=== PATIENT | male | born 1985 | race Caucasian/White ===

== ENCOUNTER 2019-08-11 10:42 | Emergency (ER) | payer BC, SELFPAY ==
--- NOTE | 2019-08-11 10:51 | ED.GENADULT ---
HPI - General Adult General Chief complaint: Wound/Laceration Stated complaint: knee lac Time Seen by Provider: 08/11/19 10:51 Source: patient Mode of arrival: ambulatory Limitations: no limitations History of Present Illness HPI narrative: Patient is a 34-year-old who presents for evaluation of left knee laceration. 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 Patient sustained a laceration from that, and he tried to apply tissue adhesive without much improvement. Patient denies pain, numbness any active bleeding. He is up-to-date on her tetanus. Patient was seen at an urgent care and referred to this facility for repair. Related Data Allergies Allergy/AdvReac Type Severity Reaction Status Date / Time steriods Allergy Unknown Rash Uncoded 08/11/19 11:17 Review of Systems Review of Systems: Narrative: CONSTITUTIONAL: Denies fever, chills, or sweats. CARDIOVASCULAR: Denies chest pain GASTROINTESTINAL: Denies abdominal pain GENITOURINARY: Denies dysuria or hematuria. SKIN: Denies rash or itching. MUSCULOSKELETAL: Denies back pain NEUROLOGIC: Denies numbness PMF Surgical History Surgical History History of appendectomy Social History Social History (Updated 08/11/19 @ 11:03 by Jennifer Hebert MD) Smoking status: Never smoker Alcohol intake: current Drinks per week: 2 Substance use: never Living arrangements: with family Gender identity (if verbalized by the patient): Male Exam Narrative: Exam Narrative: GENERAL: Awake, alert, conversant HEAD: Normocephalic, atraumatic. EYES: PERRLA and EOMI. ENT: Nares clear, no rhinorrhea or epistaxis. Mucous membranes moist. NECK: Supple. CHEST: No respiratory distress, breathing even and non labored HEART: Regular rate, sinus rhythm ABDOMEN:Non distended, non tender EXTREMITIES: Normal range of motion. No edema. SKIN: Warm, dry, no rash. 2 cm superficial, linear laceration to the medial aspect of the left knee, no active bleeding, no foreign body, no deep tissue involvement NEURO:No focal deficits. Alert and oriented x3 Course Vital Signs Vital signs: Vital Signs Temperature 37.1 C 08/11/19 10:57 Pulse Rate 68 08/11/19 10:57 Respiratory Rate 16 08/11/19 10:57 Blood Pressure 118/54 L 08/11/19 10:57 Pulse Oximetry 100 08/11/19 10:57 Temperature 37.1 C 08/11/19 10:57 Pulse Rate 68 08/11/19 10:57 Respiratory Rate 16 08/11/19 10:57 Blood Pressure 118/54 L 08/11/19 10:57 Pulse Oximetry 100 08/11/19 10:57 Procedures Laceration Laceration 1: Date: 08/11/19 Time: 11:04 Site: lower extremity Side (If applicable): left Size (cm): 2 Description: linear Depth: simple, single layer Local Anesthetic: lidocaine 1% Amount of anesthesia used (mL): 4 Pre-repair: wound explored, irrigated and irrigated extensively ====== Skin Level ====== Skin layer closed with: prolene Size (cm): 5-0 Number of sutures: 4 Technique: simple, interrupted ====== Subcutaneous Layer ====== ====== Muscle Layer ====== ====== Tendon Layer ====== Medical Decision Making MDM Narrative Medical decision making narrative: Patient with superficial laceration to the medial aspect of the left knee. No foreign body. This was irrigated extensively, sutured. No deep sutures were required for this. Patient is up-to-date on his tetanus. No pain, evidence of foreign body to warrant imaging. Patient is neurovascularly intact. Patient was discharged home with wound care instructions. Vital Signs Vital Signs: Vital Signs Temperature 37.1 C 08/11/19 10:57 Pulse Rate 68 08/11/19 10:57 Respiratory Rate 16 08/11/19 10:57 Blood Pressure 118/54 L 08/11/19 10:57 Pulse Oximetry 100
[2019-08-11 10:57] VITALS: BP 118/54; PULSE 68; RESP 16; TEMP 37.1; O2SAT 100
[2019-08-11 11:36] VITALS: BP 118/63; PULSE 82; RESP 18; O2SAT 97
== END 2019-08-11 11:39 | disposition home or self-care (01) ==
LOC: ANHED 11:06
PROVIDERS: Emergency Provider Emergency Medicine; PCP Nurse Practitioner Family
DX: S81.012A Laceration without foreign body, left knee, initial encounter (principal); W30.89XA Contact with other specified agricultural machinery, initial encounter
CPT/HCPCS: 12001; 99282

== ENCOUNTER 2020-04-04 10:33 | Emergency (ER) | payer BC, SELFPAY ==
--- NOTE | ~2020-04-04 | US_ITS ---
EXAMINATION:US venous doppler LE LT INDICATION:Left calf pain TECHNIQUE: Multiple grayscale, color flow and Doppler images of the left lower extremity deep venous systems were obtained and reviewed. COMPARISON:No prior studies for comparison. FINDINGS: The common femoral, superficial femoral and popliteal veins demonstrate normal respiratory variation, augmentation and compressibility. Color flow is also seen within the posterior tibial, pe roneal, greater saphenous and profunda veins. IMPRESSION: 1: No lower extremity deep venous thrombosis. Reviewed, dictated and finalized at location B. 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
--- NOTE | ~2020-04-04 | XR_ITS ---
XR foot LT min 3V 04/04/2020 11:05 INDICATION: Left foot pain PROCEDURE: 4 views left foot COMPARISON: No prior studies for comparison. FINDINGS: Fracture, dislocation or subluxation is not identified. Lisfranc joint intact. The soft tis sues appear within normal limits. No foreign bodies are identified. IMPRESSION: 1: NO ACUTE BONE OR JOINT ABNORMALITY IDENTIFIED. Reviewed, dictated and finalized at location B. 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
[2020-04-04 10:39] VITALS: BP 146/99; PULSE 80; RESP 18; TEMP 35.9; O2SAT 100
[2020-04-04 11:43] LABS: Basophils Absolute Auto 0.1 K/mm3 (0.0-0.1); Basophils Percent Auto 0.6 % (0.2-1.2); Eosinophils Absolute Auto 0.2 K/mm3 (0-0.3); Eosinophils Percent Auto 1.9 % (0-4.4); Hematocrit 45.5 % (42.0-52.0); Hemoglobin 15.5 g/dL (14.0-18.0); Immature Granulocyte Absolute 0.03 K/mm3 (0.00-0.031); Immature Granulocyte Percent A 0.4 % (0-0.5); Lymphocytes Absolute Auto 2.37 K/mm3 (0.9-3.2); Mean Corpuscular HGB Conc 34.1 g/dl (32-36); Mean Corpuscular Hemoglobin 28.9 pg (26-34); Mean Corpuscular Volume 84.9 fl (80-100); Mean Platelet Volume 11.9 fl (7.4-10.4); Monocytes Absolute Auto 0.8 K/mm3 (0.1-0.6); Monocytes Percent Auto 9.6 % (2.6-8.5); Neutrophils Absolute Auto 5.1 K/mm3 (1.3-6.7); Neutrophils Percent Auto 59.5 % (45.5-73.1); Platelet Count Result 175 k/mm3 (150-375); Red Blood Count 5.36 M/mm3 (4.6-6.20); Red Cell Distribution Width 12.5 % (11.5-14.5); White Blood Count 8.5 K/mm3 (4.5-10.0)
[2020-04-04 11:59] LABS: Alanine Aminotransferase 40 U/L (4-50); Albumin Level 4.6 g/dL (3.5-5.1); Alkaline Phosphatase 73 U/L (38-126); Anion Gap 10 mmol/L (8-16); Aspartate Amino Transferase 33 U/L (17-59); Bilirubin,Total 0.6 mg/dL (0.2-1.3); Blood Urea Nitrogen 19 mg/dL (9-20); Calcium 9.3 mg/dL (8.4-10.2); Carbon Dioxide 29 mmol/L (22-30); Chloride 101 mmol/L (98-107); Estimated CRCL calculation 105 ml/min; Estimated Glomerular Filt Rate > 60; Glucose 101 mg/dL (75-110); Potassium 4.2 mmol/L (3.4-5.0); Sodium 140 mmol/L (137-145); Uric Acid 9.8 mg/dL (3.5-8.5)
[2020-04-04 12:35] LABS: Erythrocyte Sedimentation Rate 10 mm/hr (0-20)
--- NOTE | 2020-04-04 12:38 | ED.GENADULT ---
HPI - General Adult General Chief complaint: Extremity Injury, Lower Stated complaint: Possible DVT Time Seen by Provider: 04/04/20 10:48 Source: RN notes reviewed History of Present Illness HPI narrative: Patient presents emergency department from urgent care for left foot pain. Patient states symptoms again proximally 1 week ago is located in the left dorsal foot rating to left lateral foot. States he has some pain that then radiates up into the lower calf states he does have a history of being diagnosed with gout at the end of February after he had been seen at the urgent care with improvement of the pain at that time then this pain again started 1 week ago he denies any trauma or injury he denies any fevers or chills chest pain shortness of breath or any other symptoms Related Data Allergies Allergy/AdvReac Type Severity Reaction Status Date / Time steriods Allergy Unknown Rash Uncoded 04/04/20 10:42 Review of Systems Review of Systems: Narrative: Gen.: Denies fevers or chills Respiratory: Denies shortness of breath or cough CV: Denies chest pain or palpitations GI: Denies abdominal pain nausea, emesis Musculoskeletal: See HPI Neuro: Denies numbness, tingling, weakness or focal weakness Skin: Denies rash Except as documented, all other systems reviewed and negative [facility] Past Medical History Medical History (Updated 04/04/20 @ 12:44 by Jordi Brody DO) Patient denies significant medical history Surgical History Surgical History History of appendectomy Social History Social History Smoking status: Never smoker Alcohol intake: current Drinks per week: 2 Substance use: never Gender identity (if verbalized by the patient): Male Exam Narrative: Exam Narrative: APPEARANCE: No acute distress, nontoxic, resting in bed Eyes: EOMI HEENT: Normocephalic, atraumatic, RESPIRATORY: No respiratory distress MUSCULOSKELETAl: Tender palpation of the left dorsal foot going to the left lateral foot at the base of the fifth metatarsal no swelling but mild erythema edema tenderness that extends along the dorsal heel up to the base of the calf mild swelling there is full flexion-extension of the left ankle without pain dorsalis pedis pulse 2+ neurovascular intact NEURO: Awake and alert. Following commands, speech normal, no focal deficits SKIN:: Warm, dry. Normal Color no rash or lesions Course Course Emergency Course: Discussed with patient results of workup and diagnosis. Discussed need for follow-up with primary care, proper use of medication, and reasons to return to the emergency department. Patient understands and agrees to current treatment plan I discussed with patient treatment of his gout he states he is allergic to steroids he states he does have some chronic heel pain on the left side Vital Signs Vital signs: Vital Signs Temperature 96.7 F L 04/04/20 10:39 Pulse Rate 80 04/04/20 10:39 Respiratory Rate 18 04/04/20 10:39 Blood Pressure 146/99 H 04/04/20 10:39 Pulse Oximetry 100 04/04/20 10:39 Temperature 96.7 F L 04/04/20 10:39 Pulse Rate 80 04/04/20 10:39 Respiratory Rate 18 04/04/20 10:39 Blood Pressure 146/99 H 04/04/20 10:39 Pulse Oximetry 100 04/04/20 10:39 Medical Decision Making Vital Signs Vital Signs: Vital Signs Temperature 96.7 F L 04/04/20 10:39 Pulse Rate 80 04/04/20 10:39 Respiratory Rate 18 04/04/20 10:39 Blood Pressure 146/99 H 04/04/20 10:39 Pulse Oximetry 100 04/04/20 10:39 Temperature 96.7 F L 04/04/20 10:39 Pulse Rate 80 04/04/20 10:39 Respiratory Rate 18 04/04/20 10:39 Blood Pressure 146/99 H 04/04/20 10:39 Pulse Oximetry 100 04/04/20 10:39 Lab Data Result diagrams: 04/04/20 11:34 04/04/20 11:34 Labs: Lab Results 04/04/20 04/04/20 Range/Units 11:34 11:34 WBC 8
[2020-04-04] MEDS: HYDROcodone/acetaminophen (*CRX) 5-325 MG TABLET 1 TAB PO (13:02)
[2020-04-04 13:04] VITALS: BP 144/89; PULSE 101; RESP 17; O2SAT 100
== END 2020-04-04 13:02 | disposition home or self-care (01) ==
PROVIDERS: Emergency Provider Emergency Medicine; PCP Nurse Practitioner Family
DX: M10.9 Gout, unspecified (principal)
CPT/HCPCS: 36415; 73630; 80053; 84550; 85025; 85652; 86140; 93971; 99284; A9270

== ENCOUNTER 2020-04-14 01:25 | Emergency (ER) | payer BC, SELFPAY ==
--- NOTE | ~2020-04-14 | XR_ITS ---
EXAMINATION: XR foot RT min 3V DATE: 04/14/2020 02:05 INDICATION: Dorsal right foot pain and edema TECHNIQUE: Dorsoplantar, two oblique and lateral views of the right foot were obtained. COMPARISON: None. FINDINGS: Alignment is normal. No fracture. 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 No co rtical erosions or periosteal reaction. Moderate-sized Achilles calcaneal spurs. Soft tissues are unr emarkable. IMPRESSION: 1. 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 No acute osseous abnormality. Reviewed, dictated and finalized at location A. 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 No acute osseo us abnormality.
[2020-04-14 01:31] VITALS: BP 140/87; PULSE 59; RESP 16; TEMP 37; O2SAT 98
--- NOTE | 2020-04-14 01:53 | ED.EXTPRO ---
HPI - Extremity Problem General Chief complaint: Extremity Problem,Nontraumatic Stated complaint: right foot & leg pain Time Seen by Provider: 04/14/20 01:53 Source: patient Mode of arrival: ambulatory Limitations: no limitations History of Present Illness HPI Narrative: Patient is a 35 yo male who presents for evaluation of right foot swelling and redness. Patient states he was seen a week prior for gout in his left foot. Pt reports pain in his right foot that is moderate in nature and severe with movement. No recent fall or injury. Pt seen at this facility last week for edema and erythema, had a negative venous ultrasound of the left lower extremity, had an elevated uric acid level and was diagnosed with gout of the left forefoot. Patient states that pain and swelling in the left foot has completely resolved and now he has developed slight swelling, pain and redness in the right foot. Patient is not currently taking indomethacin as he ran out this morning. Patient was not placed on steroids at his last visit. He denies ankle pain or knee pain. No ankle or knee swelling. No fever or chills. Of note, patient's tested positive for Covid 2 days previously. He is experiencing no symptoms of fever, cough, or dyspnea. No rhinorrhea. No loss of sense of taste or smell. No diarrhea. Related Data Allergies Allergy/AdvReac Type Severity Reaction Status Date / Time steriods Allergy Unknown Rash Uncoded 04/14/20 01:26 Review of Systems Review of Systems: Narrative: CONSTITUTIONAL: Denies fever, chills, or sweats. CARDIOVASCULAR: Denies chest pain, palpitations, or edema. RESPIRATORY: Denies cough or dyspnea. GASTROINTESTINAL: Denies abdominal pain, nausea, vomiting, or diarrhea. GENITOURINARY: Denies dysuria or hematuria. SKIN: Denies rash or itching. MUSCULOSKELETAL: Denies back pain, reports right foot pain, edema, and erythema NEUROLOGIC: Denies headache, numbness, or weakness. [facility] Past Medical History Medical History (Updated 04/14/20 @ 02:47 by Jennifer Hebert MD) Gout Surgical History Surgical History History of appendectomy Social History Social History Smoking status: Never smoker Alcohol intake: current Drinks per week: 2 Substance use: never Gender identity (if verbalized by the patient): Male Exam Narrative: Exam Narrative: GENERAL: Awake, alert, conversant HEAD: Normocephalic, atraumatic. EYES: PERRLA and EOMI. ENT: Nares clear, no rhinorrhea or epistaxis. Mucous membranes moist. NECK: Supple. CHEST: No respiratory distress, breathing even and non labored HEART: Regular rate, sinus rhythm ABDOMEN:Non distended, non tender EXTREMITIES: Normal range of motion. Tenderness of the right forefoot. DP pulse 2+. No ecchymoses or crepitus. + Tenderness to palpation. Mild warmth and erythema overlying the extensor tenosynovium. SKIN: Warm, dry, no rash. NEURO:No focal deficits. Alert and oriented x3 Course Vital Signs Vital signs: Vital Signs Temperature 37.0 C 04/14/20 01:31 Pulse Rate 59 L 04/14/20 01:31 Respiratory Rate 16 04/14/20 01:31 Blood Pressure 140/87 04/14/20 01:31 Pulse Oximetry 98 04/14/20 01:31 Temperature 37.0 C 04/14/20 01:31 Pulse Rate 59 L 04/14/20 01:31 Respiratory Rate 16 04/14/20 01:31 Blood Pressure 140/87 04/14/20 01:31 Pulse Oximetry 98 04/14/20 01:31 MDM - Extremity (Nontraumatic) MDM Narrative Medical decision making narrative: Patient presented for evaluation of edema, erythema and pain of the right forefoot. Patient with recent visit to this facility for similar symptoms in the opposite foot, recently discontinued indomethacin today with worsening pain and swelling in the right foot over the past 2 days. Last week patient had a work-up that was consistent with gout in the left foot and was discharged home on indomethaci
[2020-04-14] MEDS: oxyCODONE/ACETAMINOPHEN (*CRX) 5-325 MG TABLET 1 TABLET PO (02:10)
[2020-04-14 02:27] LABS: Basophils Absolute Auto 0.1 K/mm3 (0.0-0.1); Basophils Percent Auto 0.7 % (0.2-1.2); Eosinophils Absolute Auto 0.3 K/mm3 (0-0.3); Eosinophils Percent Auto 2.9 % (0-4.4); Hematocrit 42.3 % (42.0-52.0); Hemoglobin 14.4 g/dL (14.0-18.0); Immature Granulocyte Absolute 0.03 K/mm3 (0.00-0.031); Immature Granulocyte Percent A 0.3 % (0-0.5); Lymphocytes Absolute Auto 3.43 K/mm3 (0.9-3.2); Lymphocytes Percent Auto 32.3 % (18.3-44.2); Mean Corpuscular Volume 85.3 fl (80-100); Monocytes Absolute Auto 1.1 K/mm3 (0.1-0.6); Monocytes Percent Auto 10.2 % (2.6-8.5); Neutrophils Absolute Auto 5.7 K/mm3 (1.3-6.7); Neutrophils Percent Auto 53.6 % (45.5-73.1); Platelet Count Result 218 k/mm3 (150-375); Red Blood Count 4.96 M/mm3 (4.6-6.20); Red Cell Distribution Width 12.3 % (11.5-14.5); White Blood Count 10.6 K/mm3 (4.5-10.0)
[2020-04-14 02:44] LABS: Alanine Aminotransferase 27 U/L (4-50); Albumin Level 4.2 g/dL (3.5-5.1); Alkaline Phosphatase 60 U/L (38-126); Anion Gap 10 mmol/L (8-16); Aspartate Amino Transferase 23 U/L (17-59); Bilirubin,Total 0.3 mg/dL (0.2-1.3); Blood Urea Nitrogen 22 mg/dL (9-20); CRP 1.1 mg/dL (<1.0); Calcium 9.2 mg/dL (8.4-10.2); Carbon Dioxide 28 mmol/L (22-30); Chloride 105 mmol/L (98-107); Estimated CRCL calculation 104 ml/min; Estimated Glomerular Filt Rate > 60; Glucose 125 mg/dL (75-110); Potassium 3.9 mmol/L (3.4-5.0); Sodium 143 mmol/L (137-145); Uric Acid 9.1 mg/dL (3.5-8.5)
[2020-04-14 03:06] LABS: Erythrocyte Sedimentation Rate 14 mm/hr (0-20)
[2020-04-14] MEDS: INDOMETHACIN 25 MG CAPSULE PO (03:06)
[2020-04-14] MEDS: COLCHICINE 0.6 MG TABLET 1.2 MG PO (03:06)
[2020-04-14] MEDS: predniSONE 20 MG TABLET 60 MG PO (03:29)
[2020-04-14] MEDS: COLCHICINE 0.6 MG TABLET PO (04:10)
[2020-04-14] MEDS: oxyCODONE HCL (*CRX) 2.5 MG TAB IR PO (04:10)
[2020-04-14 04:16] VITALS: BP 138/72; PULSE 78; RESP 16; O2SAT 98
[2020-04-14 20:16] LABS: SARS-CoV-2 RNA PCR Negative
== END 2020-04-14 04:17 | disposition home or self-care (01) ==
PROVIDERS: Emergency Provider Emergency Medicine; PCP Nurse Practitioner Family
DX: M10.071 Idiopathic gout, right ankle and foot (principal)
CPT/HCPCS: 36415; 73630; 80053; 84550; 85025; 85652; 86140; 87635; 99283; A9270; C9803; J7512; U0003

== ENCOUNTER 2021-04-18 16:20 | Emergency (ER) | payer OTHER, SELFPAY ==
[2021-04-18 16:40] VITALS: BP 124/67; PULSE 83; RESP 18; TEMP 36.5; O2SAT 97
--- NOTE | 2021-04-18 17:00 | ED.WOUNDLAC ---
HPI - Wound/Laceration General Chief Complaint: Wound/Laceration Stated Complaint: laceration Time Seen by Provider: 04/18/21 16:53 Source: patient and RN notes reviewed Mode of arrival: ambulatory Limitations: no limitations History of Present Illness HPI narrative: Patient presents today planing of a laceration to his left thumb that occurred 1 hour prior to arrival. 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 Patient works at [employer]. He is up-to-date on his tetanus vaccine. Currently rates pain 06/13. Denies numbness or tingling. Related Data Home Medications Medication Instructions Recorded Confirmed allopurinol 04/18/21 omeprazole 04/18/21 Allergies Allergy/AdvReac Type Severity Reaction Status Date / Time steriods Allergy Unknown Rash Uncoded 04/18/21 16:46 Review of Systems Review of Systems: CONSTITUTIONAL: Denies body aches, fever, chills, or sweats. EYES: Denies visual changes, redness, or discharge. ENT: Denies rhinorrhea, congestion, sore throat, or otalgia. CARDIOVASCULAR: Denies chest pain, palpitations, or edema. RESPIRATORY: Denies cough or dyspnea. GASTROINTESTINAL: Denies abdominal pain, nausea, vomiting, or diarrhea. GENITOURINARY: Denies dysuria or hematuria. SKIN: Denies rash, itching. + Laceration to left thumb MUSCULOSKELETAL: Denies back pain, joint pain, or myalgia. NEUROLOGIC: Denies headache, numbness, tingling, or weakness. PSYCH: Denies depression or anxiety. [facility] Past Medical History Medical History Gout Surgical History Surgical History History of appendectomy Social History Social History Smoking status: Never smoker Alcohol intake: current Drinks per week: 2 Substance use: never Gender identity (if verbalized by the patient): Male Comments At time of signature, I have reviewed and agree with nursing past medical, surgical, social and family history unless otherwise noted. Please see nursing chart for further information. There is no relevant family history pertinent to the presenting complaint Exam Narrative: GENERAL: Well-appearing, well-nourished, and in no acute distress. HEAD: Normocephalic, atraumatic. EYES: EOMI. No redness or drainage. Conjunctivae normal. ENT: Mucous membranes pink and moist. NECK: Normal AROM. CHEST: No respiratory distress. EXTREMITIES: Left thumb: 2.5 cm full-thickness flap laceration to the lateral side of the fingernail. Distal sensation intact. Capillary refill normal. Full range of motion of the thumb. SKIN: Warm, dry, no rash. Capillary refill normal. Normal skin turgor. NEURO: No focal deficits. Alert and oriented x3. Gait steady. PSYCH: Normal affect. No signs of depression or anxiety. Course Vital Signs Vital signs: Vital Signs Temperature 97.7 F 04/18/21 16:40 Pulse Rate 83 04/18/21 16:40 Respiratory Rate 18 04/18/21 16:40 Blood Pressure 124/67 04/18/21 16:40 Pulse Oximetry 97 04/18/21 16:40 Temperature 97.7 F 04/18/21 16:40 Pulse Rate 83 04/18/21 16:40 Respiratory Rate 18 04/18/21 16:40 Blood Pressure 124/67 04/18/21 16:40 Pulse Oximetry 97 04/18/21 16:40 Reviewed. Pt has been instructed to follow up with his PCP regarding his elevated blood pressure today. Procedures Laceration Laceration 1: Date: 04/18/21 Time: 17:03 Site: hand (Left thumb) Size (cm): 2.5 Description: flap Depth: simple, single layer Local Anesthetic: lidocaine 1% Amount of anesthesia used (mL): 5 Pre-repair: wound explored and irrigated ====== Skin Level ====== Size (cm): 5-0 Number of sutures: 5 Technique: simple, interrupted ====== Subcutaneous Layer ====== ====== Muscle Layer ======
== END 2021-04-18 17:41 | disposition home or self-care (01) ==
PROVIDERS: Emergency Provider Nurse Practitioner; PCP Nurse Practitioner Family
DX: S61.012A Laceration without foreign body of left thumb without damage to nail, initial encounter (principal); W26.0XXA Contact with knife, initial encounter; M10.9 Gout, unspecified
CPT/HCPCS: 12001; 99212; G0463